=== PATIENT | female | born 1950 | race Two or more races ===

== ENCOUNTER 2024-10-16 18:20 | Emergency (ER) | payer OTHER ==
[~2024-10-16] VITALS: Ht 160 cm; Wt 70.1 kg
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
[2024-10-16 20:25] LABS: Basophils # (auto) 0.1 10 ^3/uL (0-0.2); Basophils % (auto) 0.7 % (0.0-2.0); Eosinophils # (auto) 0.1 10 ^3/uL (0-0.8); Hematocrit 34.6 % (36.0-46.0); Hemoglobin 11.4 g/dL (12.2-16.2); Lymphocytes % (auto) 28.5 % (10.0-50.0); Mean Corpuscular Hemoglobin 29.1 pg (28.0-32.0); Mean Corpuscular Hgb Conc. 32.9 g/dL (32.0-36.0); Mean Corpuscular Volume 88.3 fL (80.0-100.0); Monocytes # (auto) 0.4 10 ^3/uL (0-1.3); Monocytes % (auto) 6.4 % (0.0-12.0); Neutrophils # (auto) 4.3 10 ^3/uL (1.6-8.6); Neutrophils % (auto) 63.4 % (37.0-80.0); Nucleated Red Blood Cells % 0.1 %; Platelet Count (auto) 181 10^3/uL (140-450); Red Blood Cells 3.92 10^6/uL (4.0-5.20); Red Cell Distribution Width 13.4 % (11.8-14.3); White Blood Cell 6.9 10^3/uL (4.4-10.8)
[2024-10-16 20:30] LABS: Sodium 145 mmol/L (136-145)
[2024-10-16 20:31] LABS: Anion Gap 9 (5-15); Carbon Dioxide 20 mmol/L (20-31)
[2024-10-16 20:36] LABS: BUN/Creatinine Ratio 16.3 (10.0-20.0); Glucose 94 mg/dL (74-106)
[2024-10-16] MEDS: ACETAMINOPHEN 325 MG TAB PO ONE (20:36)
[2024-10-16 20:39] LABS: Blood Urea Nitrogen 8 mg/dL (9-23); Calcium 7.7 mg/dL (8.7-10.4); Chloride 116 mmol/L (98-107); Potassium 2.8 mmol/L (3.5-5.1)
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
[2024-10-16 22:15] VITALS: BP 133/74; TEMP 99; O2SAT 94
[2024-10-16 22:16] VITALS: PULSE 97; RESP 16
== END 2024-10-16 22:35 | disposition home or self-care (01) ==
LOC: ER 18:20
DX: R10.84 Generalized abdominal pain (principal); M54.2 Cervicalgia; M54.9 Dorsalgia, unspecified; I10 Essential (primary) hypertension; V49.40XA Driver injured in collision with unspecified motor vehicles in traffic accident, initial encounter; Y93.89 Activity, other specified; Y92.410 Unspecified street and highway as the place of occurrence of the external cause; Y99.8 Other external cause status
CPT/HCPCS: 36415; 70450; 71046; 74177; 80048; 85025; 99285; J7040; Q9967